=== PATIENT | female | born 1930 | race Caucasian/White ===

== ENCOUNTER 2017-02-10 15:25 | Emergency (ER) | payer OTHER ==
[~2017-02-10] VITALS: Ht 157.5 cm; Wt 61.2 kg
[~2017-02-10 15:25] MED LIST: APAP W/CODEINE1 TA2 PO; ASPIR 8181 MG PO; ATENOLOL 50MG T50 M1 PO; BONIVA150 MG PO; CALCIUM 600 +1 EAC1 PO; FISH OIL 1,001000 M2 PO; FLONASE 0.05%50 MCG NASAL; KEFLEX500 MG PO; LIPITOR 20 MG T20 M1 PO; PAMELOR25 MG PO; VESICARE 5 MG TA5 MG PO; ZOLOFT50 MG PO
[2017-02-10 18:18] VITALS: BP 161/78
[2017-02-10] MEDS ORDERED: KEFLEX500 MG PO (18:44)
== END 2017-02-10 19:54 | disposition home or self-care (01) ==
LOC: ER 15:25
DX: S01.81XA Laceration without foreign body of other part of head, initial encounter (principal); I10 Essential (primary) hypertension; F03.90 Unspecified dementia, unspecified severity, without behavioral disturbance, psychotic disturbance, mood disturbance, and anxiety; Z88.2 Allergy status to sulfonamides; W01.198A Fall on same level from slipping, tripping and stumbling with subsequent striking against other object, initial encounter; Y93.89 Activity, other specified; Y92.89 Other specified places as the place of occurrence of the external cause; Y99.8 Other external cause status